=== PATIENT | male | born 1985 | race Caucasian/White ===

== ENCOUNTER 2018-05-23 18:00 | Observation (INO) ==
[2018-05-23 18:33] LABS: Basophils # 0.1 K/mm3 (0-0.2); Basophils % 0.4 % (0.1-2.0); Eosinophils # 0.3 K/mm3 (0.0-0.4); Eosinophils % 2.7 % (0.1-12.0); Hematocrit 48.3 % (42.0-52.0); Lymphocytes # 3.9 K/mm3 (0.7-4.5); Lymphocytes % 33.3 K/mm3 (10-50); Mean Corpuscular HGB Conc 33.1 g/dL (31.8-35.4); Mean Corpuscular Hemoglobin 32.6 pg (27.0-31.2); Mean Corpuscular Volume 98.4 fl (80-94); Mean Platelet Volume 6.3 fl (7.4-10.4); Monocytes # 0.4 K/mm3 (0.1-1.0); Monocytes % 3.1 % (1.7-9.3); Neutrophils % 60.4 % (37.0-80.0); Platelet Count 431 K/mm3 (142-424); Red Blood Count 4.91 M/mm3 (4.60-6.20); Red Cell Distribution Width 13.8 % (11.5-17.5); White Blood Count 11.6 K/mm3 (4.8-10.8)
[2018-05-23 18:41] LABS: Calcium 8.8 mg/dL (8.5-10.1)
--- NOTE | 2018-05-23 19:10 | Emergency Department Note ---
ED Disposition Clinical Impression: Upper GI bleed, Alcoholism /alcohol abuse Disposition: Still a Patient Condition on Discharge: Good Referrals: Provider,Referral, [Primary Care Provider] - - Critical Care Critical Care Time: No Attestation: On 05/23/18, the high probability of a clinically significant, sudden or life threatening deterioration of the following system(s) required my full and direct attention, intervention and personal management. The time I documented below is in addition to time spent performing reported procedures but includes the following listed in this critical care notation. Medical Decision Making - Rudy Inquiry Pt receiving controlled substance: No Vital Signs: 05/23/18 18:05 Temperature 98.4 F Temperature Source Oral Pulse Rate [Right Brachial] 102 H Respiratory Rate 20 Blood Pressure [Right Arm] 128/79 Blood Pressure Mean [Right Arm] 95 Blood Pressure Source [Right Arm] Automatic Cuff Blood Pressure Position [Right Arm] Sitting 02 Sat by Pulse Oximetry 98 Oxygen Delivery Method Room Air - Lab Data Lab Results 05/23/18 18:20: WBC 11.6 H, RBC 4.91, Hgb 16.0, Hct 48.3, MCV 98.4 H, MCH 32.6 H , MCHC 33.1, RDW 13.8, Plt Count 431 H, MPV 6.3 L, Neut % (Auto) 60.4, Lymph % (Auto) 33.3, [place] % (Auto) 3.1, Eos % (Auto) 2.7, Baso % (Auto) 0.4, Neut # (Auto) 7.0, Lymph # (Auto) 3.9, [place] # (Auto) 0.4, Eos # (Auto) 0.3, Baso # (Auto) 0.1 05/23/18 18:20: Sodium 144, Potassium 4.0, Chloride 106, Carbon Dioxide 30, Anion Gap 12.0, BUN 6 L, Creatinine 0.89, Estimated Creat Clear 135, Estimated GFR 100, Est GFR ( Amer) 121, Glucose 93, Calcium 8.8 05/23/18 18:23: PT 9.3 L, INR 0.90 05/23/18 18:23: Lipase 97 05/23/18 18:23: Magnesium 2.1 05/23/18 18:23: Plasma/Serum Alcohol 148 H 05/23/18 18:23: Total Bilirubin 0.3, Direct Bilirubin 0.1, Indirect Bilirubin 0.2, AST 19, ALT 30, Alkaline Phosphatase 102, Total Protein 7.8, Albumin 4.0 Result diagrams: 05/23/18 18:20 05/23/18 18:20 Orders (Tests/Meds): ED MEDICATIONS Generic Name Dose Route Start Last Admin Trade Name Freq PRN Reason Stop Dose Admin Pantoprazole Sodium 80 mg/ 100 mls @ 10 mls/hr 05/23/18 19:45 05/23/18 20:04 Sodium Chloride IV 05/26/18 19:44 10 mls/hr .Q10H [place] Administration Multivitamins 10 ml/ Thiamine 1,015 mls @ 150 mls/hr 05/23/18 19:45 05/23/18 20:04 HCl 100 mg/ Magnesium Sulfate IV 05/24/18 02:30 150 mls/hr 2 gm/ Lactated Ringer's .[id number] [place] Administration Discontinued Medications Generic Name Dose Route Start Last Admin Trade Name Freq PRN Reason Stop Dose Admin Folic Acid 1 mg 05/23/18 19:39 05/23/18 20:04 Folic Acid 1mg Tablet PO 05/23/18 19:40 1 mg ONCE ONE Administration Sodium Chloride 1,000 mls @ 999 mls/hr 05/23/18 18:15 05/23/18 18:31 Sod Chlor 0.9% 1000ml Bag IV 05/23/18 19:15 999 mls/hr .Q1H1M [place] Administration Pantoprazole Sodium 40 mg 05/23/18 18:26 05/23/18 18:31 Protonix 40mg Vial IV 05/23/18 18:27 40 mg ONCE ONE Administration Sodium Chloride 8 ml 05/23/18 18:26 05/23/18 18:31 Saline Flush 10ml Syringe IV 05/23/18 18:27 8 ml ONCE ONE Administration ORDERS Category Date Time Status CT abdomen pelvis wo con Stat Cat Scan 05/23/18 18:26 Taken Drug Screen,Urine Stat Lab 05/23/18 19:19 Ordered - CT Data CT Scan: Abdomen, Pelvis Time Received: 19:[address] Reviewed: Yes: I have viewed the radiologist's interpretation Findings Narrative: CT scan interpreted by [facility] radiologist. Faxed report received and reviewed: No acute intra-abdominal abnormality detected. - Physician Consults Physician Consulted: Enrike Time: 19:48 Comment/Response: Agrees to admit the patient to the hospital. We discussed the patient's clinical information, including history, exam, laboratory and radiology results and ED course. Per hospital procedure, I will write temporary bridge inpatient orders on the patient. Specific orders requested by the admitting physician: Continue Protonix drip. Consult surgery for endoscopy. Additional Consult: Clint Time: 19:53 Reason -: Surgical Eval/Care Comment/Response: Agreeable with consult for endoscopy Medical Decision Narrative: Patient refuses rectal exam for occult blood. Advised that if he has a bowel movement in the hospital will need to be tested. General Adult HPI - General Chief complaint: GI Bleed Stated complaint: Vomiting blood, back pain Time Seen by Provider: 05/23/18 19:09 Mode of Arrival: Family Vehicle Limitations: No Limitations Description of Symptoms (Recalled from ER Triage Doc. by RN): C/O VOMITING BLOOD X 2 AFTER LUNCH (BRIGHT RED BLOOD) MORE THAN USUAL PER PATIENT. STATES HE IS AN ALCOHOLIC. ALSO C/O UPPER BACK PAIN - History of Present Illness HPI narrative: Patient states "I am vomiting more blood than usual". He has been an alcoholic for many years. States that he drinks 24 beers or 1/5 of whiskey a day. States that he has vomited up blood off and on for years. Today he vomited up 2 cups or more of blood, which is 2-3 times as much as he has in the past. Also complains of left upper quadrant and left flank pain. Denies any melena or hematochezia. No fever. States that he drank 1/5 of whiskey today. Denies drug use. Hospitalized a couple of other times for hematemesis. His mother does not think he has ever had an upper endoscopy, but at one point, possibly in college, he was told that he had a bleeding ulcer. She does not know how that was diagnosed. - Related Data Home Medications Medication Instructions Recorded Confirmed No Known Home Medications 05/23/18 05/23/18 Allergies Allergy/AdvReac Type Severity Reaction Status Date / Time No Known Allergies Allergy Verified 05/23/18 18:12 [facility] History I have reviewed the patient's past medical history: Yes Medical History: Denies:: Cancer, Diabetes Mellitus Type 1, Diabetes Mellitus Type 2, MRSA Amputation: No - Social History Smoking Status: Current every day smoker Tobacco Type: cigarettes Alcohol Intake: current Alcohol Intake Frequency:: 3 or more drinks per day - Psychiatric History Expresses thoughts of harming self/others: None Suicide Plan Description: No Plan ROS Obtained: Yes All systems reviewed & no additional complaints - Constitutional Constitutional: Denies fever(s) - Cardiovascular Cardiovascular: Denies chest pain - Respiratory Respiratory: No dyspnea - Gastrointestinal Gastrointestingal: Reports: abdominal pain, vomiting blood. Denies: bright red blood in stools, black, tarry stools Physical Exam - General General appearance: alert, in no apparent distress Comment: Speech clear. - Head Head exam: atraumatic, normocephalic, normal inspection - Eye Eye exam: Present: PERRL, EOMI, conjunctival redness - ENT ENT exam: Present: normal exam, normal oropharynx, mucous membranes moist, TM's normal bilaterally, normal external ear exam - Neck Neck exam: Present: normal inspection, full ROM, trachea midline. Absent: me ningismus, lymphadenopathy - Chest Chest inspection: Present: normal inspection, symmetric chest wall rise. Absent: tenderness - Respiratory Respiratory exam: Present: normal lung sounds bilaterally. Absent: respiratory distress - Cardiovascular Cardiovascular exam: Present: regular rate, normal rhythm. Absent: JVD - Abdominal Exam Abdominal exam: Present: soft, tenderness, normal bowel sounds. Absent: distention, guarding Abdominal tenderness: Present: epigastrium - Extremities Exam Extremities exam: Present: normal inspection, full ROM, normal capillary refill. Absent: calf tenderness - Back Exam Back exam: Present: normal inspection. Absent: tenderness - Neurological Exam Neurological exam: Present: alert, oriented X3 - Psychiatric Psychiatric exam: Present: normal affect, normal mood - Skin Skin exam: Present: warm, dry, intact, normal color
[2018-05-23 19:27] LABS: INR 0.9 (0.9-1.1); Prothrombin Time 9.3 seconds (9.4-11.8)
[2018-05-23 20:08] LABS: Bilirubin,Direct 0.1 mg/dL (0.0-0.2); Bilirubin,Indirect 0.2 mg/dL (0.0-0.9); Bilirubin,Total 0.3 mg/dL (0.2-1.0); Total Protein,Serum 7.8 gm/dL (6.4-8.2)
[2018-05-24 06:17] LABS: Basophils % 0.4 % (0.1-2.0); Eosinophils # 0.2 K/mm3 (0.0-0.4); Eosinophils % 2.2 % (0.1-12.0); Lymphocytes % 34.8 K/mm3 (10-50); Mean Corpuscular HGB Conc 32.6 g/dL (31.8-35.4); Mean Corpuscular Hemoglobin 32.4 pg (27.0-31.2); Mean Corpuscular Volume 99.2 fl (80-94); Mean Platelet Volume 6.5 fl (7.4-10.4); Monocytes # 0.4 K/mm3 (0.1-1.0); Monocytes % 4.3 % (1.7-9.3); Neutrophils # 5.1 K/mm3 (1.8-7.8); Neutrophils % 58.3 % (37.0-80.0); Platelet Count 382 K/mm3 (142-424); Red Blood Count 4.39 M/mm3 (4.60-6.20); Red Cell Distribution Width 13.6 % (11.5-17.5); White Blood Count 8.7 K/mm3 (4.8-10.8)
--- NOTE | 2018-05-24 06:22 | Consult Report ---
*Admission Date: 05/23/18 *Chief complaint: Hematemesis *History of present illness: This is a 32-year-old gentleman seen in consultation from Dr. Calvert for possible esophagogastroduodenoscopy. He presented to the emergency department overnight with hematemesis. Please see a forwarded copy (below) of his history of present illness from his emergency room visit: Patient states "I am vomiting more blood than usual". He has been an alcoholic for many years. States that he drinks 24 beers or 1/5 of whiskey a day. States that he has vomited up blood off and on for years. Today he vomited up 2 cups or more of blood, which is 2-3 times as much as he has in the past. Also complains of left upper quadrant and left flank pain. Denies any melena or hematochezia. No fever. States that he drank 1/5 of whiskey today. Denies drug use. Hospitalized a couple of other times for hematemesis. His mother does not think he has ever had an upper endoscopy, but at one point, possibly in college, he was told that he had a bleeding ulcer. She does not know how that was diagnosed. Review of Systems - Constitutional Denies body ache(s) - Eyes Denies change in vision - ENT Denies abnormal hearing - *Cardiovascular Denies chest pain - *Respiratory Denies cough - *Gastrointestinal Reports vomiting blood, Denies bright, red blood in stools - *Genitourinary Denies blood in semen - *Musculoskeletal Denies joint pain - *Neurologic Denies abnormal movements - Psychiatric Denies anxiety - Endocrine Denies cold intolerance - Hematologic/Lymphatic Denies easy bleeding - Allergic/Immunologic Denies throat swelling [facility] History Medical History: Denies:: Cancer, Diabetes Mellitus Type 1, Diabetes Mellitus Type 2, MRSA Amputation: No - *Social History Educational Level: Completed High School Smoking Status: Current every day smoker Tobacco Type: cigarettes # Packs/Day (cigarettes): 1 Alcohol Intake: current Alcohol Intake Frequency:: 3 or more drinks per day Occupational Status: employed Housing: house Household Members: significant other - Psychiatric History Expresses thoughts of harming self/others: None Suicide Plan Description: No Plan *Family Hx:: No significant family history Meds Home Medications Medication Instructions Recorded Confirmed Type No Known Home Medications 05/23/18 05/23/18 History Allergies Allergy/AdvReac Type Severity Reaction Status Date / Time No Known Allergies Allergy Verified 05/23/18 18:12 Exam Vital signs and Labs for Last 24 Hours: Temp Pulse Resp BP Pulse Ox 97.8 F 86 16 156/85 94 L 05/24/18 04:00 05/24/18 04:00 05/24/18 04:00 05/24/18 04:00 05/24/18 04:00 Laboratory Results - last 24 hr 05/23/18 18:20: WBC 11.6 H, RBC 4.91, Hgb 16.0, Hct 48.3, MCV 98.4 H, MCH 32.6 H , MCHC 33.1, RDW 13.8, Plt Count 431 H, MPV 6.3 L, Neut % (Auto) 60.4, Lymph % (Auto) 33.3, [place] % (Auto) 3.1, Eos % (Auto) 2.7, Baso % (Auto) 0.4, Neut # (Auto) 7.0, Lymph # (Auto) 3.9, [place] # (Auto) 0.4, Eos # (Auto) 0.3, Baso # (Auto) 0.1 05/23/18 18:20: Sodium 144, Potassium 4.0, Chloride 106, Carbon Dioxide 30, Anion Gap 12.0, BUN 6 L, Creatinine 0.89, Estimated Creat Clear 135, Estimated GFR 100, Est GFR ( Amer) 121, Glucose 93, Calcium 8.8 05/23/18 18:23: PT 9.3 L, INR 0.90 05/23/18 18:23: Lipase 97 05/23/18 18:23: Magnesium 2.1 05/23/18 18:23: Plasma/Serum Alcohol 148 H 05/23/18 18:23: Total Bilirubin 0.3, Direct Bilirubin 0.1, Indirect Bilirubin 0.2, AST 19, ALT 30, Alkaline Phosphatase 102, Total Protein 7.8, Albumin 4.0 05/23/18 18:28: APTT 30.0 05/23/18 18:28: Phosphorus 3.7 I & O for Last 24 hours: Intake & Output 05/21/18 05/22/18 05/23/18 05/24/18 11:59 11:59 11:59 11:59 Intake Total 2073 Balance 2073 Weight 181 lb - Constitutional no acute distress - *Routine HEENT Exam Head: Present: normocephalic, atraumatic - *Routine Neck Exam Present: full ROM - *Routine Respiratory Exam Absent: respiratory distress - *Routine Cardiovascular Exam Present: RRR - *Routine Abdominal Exam Present: soft - *Routine Extremities Exam Present: full ROM. Absent: cyanosis, clubbing, edema - *Routine Neurological Exam Present: alert, oriented X3 - Routine Psychiatric Exam Present: normal affect Results - Labs 05/23/18 18:20 05/23/18 18:20 Laboratory Results - last 24 hr 05/23/18 18:20: WBC 11.6 H, RBC 4.91, Hgb 16.0, Hct 48.3, MCV 98.4 H, MCH 32.6 H , MCHC 33.1, RDW 13.8, Plt Count 431 H, MPV 6.3 L, Neut % (Auto) 60.4, Lymph % (Auto) 33.3, [place] % (Auto) 3.1, Eos % (Auto) 2.7, Baso % (Auto) 0.4, Neut # (Auto) 7.0, Lymph # (Auto) 3.9, [place] # (Auto) 0.4, Eos # (Auto) 0.3, Baso # (Auto) 0.1 05/23/18 18:20: Sodium 144, Potassium 4.0, Chloride 106, Carbon Dioxide 30, Anion Gap 12.0, BUN 6 L, Creatinine 0.89, Estimated Creat Clear 135, Estimated GFR 100, Est GFR ( Amer) 121, Glucose 93, Calcium 8.8 05/23/18 18:23: PT 9.3 L, INR 0.90 05/23/18 18:23: Lipase 97 05/23/18 18:23: Magnesium 2.1 05/23/18 18:23: Plasma/Serum Alcohol 148 H 05/23/18 18:23: Total Bilirubin 0.3, Direct Bilirubin 0.1, Indirect Bilirubin 0.2, AST 19, ALT 30, Alkaline Phosphatase 102, Total Protein 7.8, Albumin 4.0 05/23/18 18:28: APTT 30.0 05/23/18 18:28: Phosphorus 3.7 Assessment and Plan (1) Upper GI bleed Current visit: Yes Status: Acute Category: Medical Code(s): K92.2 - Gastrointestinal hemorrhage, unspecified Esophagogastroduodenoscopy-I have discussed the risks and benefits and he agrees to proceed Continue proton pump inhibition (2) Alcoholism /alcohol abuse Current visit: Yes Status: Acute Category: Medical Code(s): F10.20 - Alcohol dependence, uncomplicated Treatment as per primary care provider. He will require the anesthesia service for sedation.
[2018-05-24 06:35] LABS: Hematocrit 43.7 % (42.0-52.0); Hemoglobin 14.4 g/dL (14.1-18.0)
--- NOTE | 2018-05-24 07:25 | Procedure Note ---
- Procedure: Date: 05/24/18 Procedure Performed:: Esophagogastroduodenoscopy with biopsy Indications:: This is a 32-year-old gentleman who presented to the emergency department with hematemesis. Performing Provider:: Noel Jaramillo MD Referring Provider:: Dr. Calvert Sedation:: Monitored anesthesia care Procedure:: After informed consent was obtained the patient was taken to the endoscopy suite. Sedation ensued after the patient was transferred to the left lateral decubitus position. Pulse, blood pressure, and oxygen saturation were monitored throughout the procedure. The endoscope was advanced beyond the duodenal bulb. Retroflexion within the gastric lumen was accomplished. Please see findings and specimens below for detail. The gastroscope was carefully removed and the patient was transferred to recovery. Findings:: Gastroesophageal junction at 40 cm Patchy distal esophagitis Moderate sliding hiatal hernia Large amount of food particles retained within gastric lumen Patchy gastritis No active bleeding No sign of recent hemorrhage (no old blood within gastric lumen or small bowel) No significant varices No ulcerations Specimens:: Antral biopsy Recommendations:: Continue proton pump inhibitor Follow-up pending pathology Likely repeat EGD in near future for improved visualization (limited visualization secondary to large amount of retained food particles) Complications:: No immediate Estimated blood obtained (mL): 1
--- NOTE | 2018-05-24 07:29 | Progress Note ---
[facility] Anesthesia Checklist - Patient Identification Patient Identification: Arm Band, Verbal (Name & ) - Structural Data Admitted From: Inpatient Planned Operative Procedure/s: egd Consent for Planned Operative Procedure(s) Verified: Yes Verified Documents: Surgical Consent, History and Physical - NPO Status Verified Time NPO: 00:00 - Additional verifications Patient : No Anesthesia Reactions: No Hx Blood Transfusions: No Blood Transfusion Reaction: No Cephalosporin Allergy: No Previous Colonoscopy: No - Cardiovascular Assessment Heart Sounds: S1 & S2 Pulse Strength: Baseline Pulse Rhythm: Regular Peripheral Edema: No - Airway Assessment C-Spine Mobility Assessed: Yes TMJ Mobility Assessed: Yes Dentition: Good Dentition - Neurological Assessment Level of Consciousness: Awake, Alert, Appropriate Hx Seizures: No Numbness or tingling in extremities: No - Anesthesia Plan Anesthesia Risk discussed: Yes Anesthesia Plan: Verified ASA Class: II Anesthesia Type: [facility] History I have reviewed the patient's past medical history: Yes Medical History: Denies:: Cancer, Diabetes Mellitus Type 1, Diabetes Mellitus Type 2, MRSA Other Surgeries: Yes: Other (ing hernia) Amputation: No - *Social History Educational Level: Completed High School Smoking Status: Current every day smoker Tobacco Type: cigarettes # Packs/Day (cigarettes): 1 Alcohol Intake: current Alcohol Intake Frequency:: 3 or more drinks per day Occupational Status: employed Housing: house Household Members: significant other - Psychiatric History Expresses thoughts of harming self/others: None Suicide Plan Description: No Plan *Family Hx:: No significant family history
--- NOTE | 2018-05-24 07:53 | Pharmacy Consult Notes ---
[facility] Pharmacy VTE Monitoring - Patient Demographics Admission date: 05/23/18 Report Date: 05/24/18 Time: 07:53 Allergies/Adverse Reactions: Patient Allergies No Known Allergies Allergy (Verified 05/23/18 18:12) Height: 1.73 m Weight: 82.1 kg Patient Problems: Current Active Problems Upper GI bleed (Acute) Alcoholism /alcohol abuse (Acute) - VTE Risk Labs: VTE Related Lab Results Hgb 14.4 g/dL (14.1-18.0) 05/24/18 05:15 Hct 43.7 % (42.0-52.0) 05/24/18 05:15 Plt Count 382 K/mm3 (142-424) 05/24/18 05:15 PT 9.3 seconds (9.4-11.8) L 05/23/18 18:23 INR 0.90 (0.9-1.1) 05/23/18 18:23 APTT 30.0 seconds (23.6-34.0) 05/23/18 18:28 BUN 6 mg/dL (7-18) L 05/23/18 18:20 Creatinine 0.89 mg/dL (0.70-1.30) 05/23/18 18:20 Estimated Creat Clear 135 mL/min (0-300) 05/23/18 18:20 Was VTE Risk Assessment Performed: Yes VTE Score: 0 VTE Risk Level: Very Low Risk - Prophylaxis VTE Prophylaxis Ordered?: Yes Types of VTE Prophylaxis: TEDS Knee High Location of Applied Device: Bilateral Lower Extremeties - VTE Diagnosis Confirmed Treatment or plan recommended: Continue Current Treatment
--- NOTE | 2018-05-25 08:26 | Discharge Summary ---
General - General Admission date:: 05/23/18 Discharge date: 05/24/18 HPI HPI: Mr. Gonsalez is a 32yo male who has been alcoholic for many years. He states he drinks approximately 24 beers every night and on the nights he is not working the next day, he drinks 1/5 of whiskey as well. He states he has vomited small amounts of blood on and off for years. He presented to the emergency room after vomiting a few cups or more of blood. He does complain of some left upper quadrant and left flank pain. He denies any melena or hematochezia. He states he has never had an EGD, but was told in the past he had a bleeding ulcer. He was admitted and surgery was consulted for an EGD. Hospital Course Hospital Course: The patient was seen by Dr. Jaramillo who performed an EGD. It showed gastritis and esophagitis, but no active bleed. His H&H was stable. He was able to be discharged home and will need to f/u with surgery in 1 week. Objective Vital signs: Temp Pulse Resp BP Pulse Ox 98 F 77 20 123/79 96 05/24/18 07:56 05/24/18 07:56 05/24/18 07:56 05/24/18 07:56 05/24/18 07:56 Narrative: - Constitutional no acute distress - *Routine HEENT Exam Head: Present: normocephalic, atraumatic Eye: Present: EOMI, PERRL ENT: Present: mucous membranes moist - *Routine Neck Exam Present: supple, full ROM - *Routine Respiratory Exam Present: CTA bilaterally - *Routine Cardiovascular Exam Present: RRR - *Routine Abdominal Exam Present: soft, normoactive bowel sounds, tenderness (LUQ and LMQ) - *Routine Extremities Exam Absent: edema - *Routine Skin Exam Present: intact - *Routine Neurological Exam Present: alert, oriented X3 Results Labs on day of discharge: Labs from last 24 hours 05/24/18 05/23/18 05/23/18 05:15 18:28 18:28 WBC 8.7 RBC 4.39 L Hgb 14.4 Hct 43.7 MCV 99.2 H MCH 32.4 H MCHC 32.6 RDW 13.6 Plt Count 382 MPV 6.5 L Neut % (Auto) 58.3 Lymph % (Auto) 34.8 [place] % (Auto) 4.3 Eos % (Auto) 2.2 Baso % (Auto) 0.4 Neut # (Auto) 5.1 Lymph # (Auto) 3.0 [place] # (Auto) 0.4 Eos # (Auto) 0.2 Baso # (Auto) 0.0 PT INR APTT 30.0 Sodium Potassium Chloride Carbon Dioxide Anion Gap BUN Creatinine Estimated Creat Clear Estimated GFR Est GFR ( Amer) Glucose Calcium Phosphorus 3.7 Magnesium Total Bilirubin Direct Bilirubin Indirect Bilirubin AST ALT Alkaline Phosphatase Total Protein Albumin Lipase Plasma/Serum Alcohol 05/23/18 05/23/18 05/23/18 18:23 18:23 18:23 WBC RBC Hgb Hct MCV MCH MCHC RDW Plt Count MPV Neut % (Auto) Lymph % (Auto) [place] % (Auto) Eos % (Auto) Baso % (Auto) Neut # (Auto) Lymph # (Auto) [place] # (Auto) Eos # (Auto) Baso # (Auto) PT INR APTT Sodium Potassium Chloride Carbon Dioxide Anion Gap BUN Creatinine Estimated Creat Clear Estimated GFR Est GFR ( Amer) Glucose Calcium Phosphorus Magnesium 2.1 Total Bilirubin 0.3 Direct Bilirubin 0.1 Indirect Bilirubin 0.2 AST 19 ALT 30 Alkaline Phosphatase 102 Total Protein 7.8 Albumin 4.0 Lipase Plasma/Serum Alcohol 148 H 05/23/18 05/23/18 05/23/18 18:23 18:23 18:20 WBC RBC Hgb Hct MCV MCH MCHC RDW Plt Count MPV Neut % (Auto) Lymph % (Auto) [place] % (Auto) Eos % (Auto) Baso % (Auto) Neut # (Auto) Lymph # (Auto) [place] # (Auto) Eos # (Auto) Baso # (Auto) PT 9.3 L INR 0.90 APTT Sodium 144 Potassium 4.0 Chloride 106 Carbon Dioxide 30 Anion Gap 12.0 BUN 6 L Creatinine 0.89 Estimated Creat Clear 135 Estimated GFR 100 Est GFR ( Amer) 121 Glucose 93 Calcium 8.8 Phosphorus Magnesium Total Bilirubin Direct Bilirubin Indirect Bilirubin AST ALT Alkaline Phosphatase Total Protein Albumin Lipase 97 Plasma/Serum Alcohol 05/23/18 18:20 WBC 11.6 H RBC 4.91 Hgb 16.0 Hct 48.3 MCV 98.4 H MCH 32.6 H MCHC 33.1 RDW 13.8 Plt Count 431 H MPV 6.3 L Neut % (Auto) 60.4 Lymph % (Auto) 33.3 [place] % (Auto) 3.1 Eos % (Auto) 2.7 Baso % (Auto) 0.4 Neut # (Auto) 7.0 Lymph # (Auto) 3.9 [place] # (Auto) 0.4 Eos # (Auto) 0.3 Baso # (Auto) 0.1 PT INR APTT Sodium Potassium Chloride Carbon Dioxide Anion Gap BUN Creatinine Estimated Creat Clear Estimated GFR Est GFR ( Amer) Glucose Calcium Phosphorus Magnesium Total Bilirubin Direct Bilirubin Indirect Bilirubin AST ALT Alkaline Phosphatase Total Protein Albumin Lipase Plasma/Serum Alcohol DS: Diagnosis - Discharge Diagnosis (1) Upper GI bleed Status: Acute (2) Esophagitis Status: Acute (3) Gastritis Status: Acute (4) Alcoholism /alcohol abuse Status: Chronic Discharge Plan - Patient Discharge Instructions ACTIVITY: Continue current activity DIET: continue same diet Additional Instructions: Avoid alcohol Patient Instructions: Gastrointestinal Bleeding - Follow up Plan Follow up with: Noel Jaramillo MD [Staff Physician] - 1 week Disposition: Home, Self-Care Prescriptions/Medication Reconciliation: New Folic Acid [Folic Acid 1mg tablet] 1 mg PO DAILY #30 tablet Thiamine HCl [Vitamin B-1 100mg tablet] 100 mg PO DAILY #30 tablet
--- NOTE | 2018-05-25 08:31 | History & Physical Report ---
*Admission Date: 05/23/18 *Chief complaint: blood in vomit *History of present illness: Mr. Gonsalez is a 32yo male who has been alcoholic for many years. He states he drinks approximately 24 beers every night and on the nights he is not working the next day, he drinks 1/5 of whiskey as well. He states he has vomited small amounts of blood on and off for years. He presented to the emergency room after vomiting a few cups or more of blood. He does complain of some left upper quadrant and left flank pain. He denies any melena or hematochezia. He states he has never had an EGD, but was told in the past he had a bleeding ulcer. He was admitted and surgery was consulted for an EGD. [facility] History Medical History: Reports:: Gastrointestinal Bleed Denies:: Cancer, Diabetes Mellitus Type 1, Diabetes Mellitus Type 2, MRSA, Seizures Other Medical History: Denies: Blood Transfusion Reaction Other Surgeries: Yes: Hernia Repair, Other (ing hernia) Amputation: No - *Social History Educational Level: Completed High School Smoking Status: Current every day smoker Tobacco Type: cigarettes # Packs/Day (cigarettes): 1 Alcohol Intake: current Alcohol Intake Frequency:: 3 or more drinks per day Occupational Status: employed Housing: house Household Members: significant other - Psychiatric History Expresses thoughts of harming self/others: None Suicide Plan Description: No Plan *Family Hx:: Hypertension Review of Systems - Constitutional Reports weakness, Denies chills, Denies fatigue - Eyes Denies blurry vision, Denies double vision - ENT Denies nasal congestion, Denies sore throat - *Cardiovascular Denies chest pain, Denies irregular heart rhythm - *Respiratory Denies cough, Denies shortness of breath - *Gastrointestinal Reports abdominal pain, Reports vomiting blood, Reports nausea, Reports vomiting, Denies black, tarry stools - *Genitourinary Denies difficulty urinating, Denies painful urination - *Musculoskeletal Denies joint pain - *Neurologic Reports weakness, Denies abnormal hearing, Denies abnormal movements, Denies headache(s), Denies dizziness Meds Home Medications Medication Instructions Recorded Confirmed Type No Known Home Medications 05/23/18 05/23/18 History Allergies Allergy/AdvReac Type Severity Reaction Status Date / Time No Known Allergies Allergy Verified 05/23/18 18:12 Exam Vital signs and Labs for Last 24 Hours: Temp Pulse Resp BP Pulse Ox 98 F 77 20 123/79 96 05/24/18 07:56 05/24/18 07:56 05/24/18 07:56 05/24/18 07:56 05/24/18 07:56 Laboratory Results - last 24 hr 05/23/18 18:20: WBC 11.6 H, RBC 4.91, Hgb 16.0, Hct 48.3, MCV 98.4 H, MCH 32.6 H , MCHC 33.1, RDW 13.8, Plt Count 431 H, MPV 6.3 L, Neut % (Auto) 60.4, Lymph % (Auto) 33.3, Peach % (Auto) 3.1, Eos % (Auto) 2.7, Baso % (Auto) 0.4, Neut # (Auto) 7.0, Lymph # (Auto) 3.9, Peach # (Auto) 0.4, Eos # (Auto) 0.3, Baso # (Auto) 0.1 05/23/18 18:20: Sodium 144, Potassium 4.0, Chloride 106, Carbon Dioxide 30, Anion Gap 12.0, BUN 6 L, Creatinine 0.89, Estimated Creat Clear 135, Estimated GFR 100, Est GFR ( Amer) 121, Glucose 93, Calcium 8.8 05/23/18 18:23: PT 9.3 L, INR 0.90 05/23/18 18:23: Lipase 97 05/23/18 18:23: Magnesium 2.1 05/23/18 18:23: Plasma/Serum Alcohol 148 H 05/23/18 18:23: Total Bilirubin 0.3, Direct Bilirubin 0.1, Indirect Bilirubin 0.2, AST 19, ALT 30, Alkaline Phosphatase 102, Total Protein 7.8, Albumin 4.0 05/23/18 18:28: APTT 30.0 05/23/18 18:28: Phosphorus 3.7 05/24/18 05:15: WBC 8.7, RBC 4.39 L, Hgb 14.4, Hct 43.7, MCV 99.2 H, MCH 32.4 H, MCHC 32.6, RDW 13.6, Plt Count 382, MPV 6.5 L, Neut % (Auto) 58.3, Lymph % (Auto) 34.8, Peach % (Auto) 4.3, Eos % (Auto) 2.2, Baso % (Auto) 0.4, Neut # (Auto) 5.1, Lymph # (Auto) 3.0, Peach # (Auto) 0.4, Eos # (Auto) 0.2, Baso # (Auto) 0.0 I & O for Last 24 hours: Intake & Output 05/21/18 05/22/18 05/23/18 05/24/18 11:59 11:59 11:59 11:59 Intake Total 2516 / 2516 Balance 2516 Weight 181 lb - Constitutional no acute distress - *Routine HEENT Exam Head: Present: normocephalic, atraumatic Eye: Present: EOMI, PERRL ENT: Present: mucous membranes moist - *Routine Neck Exam Present: supple, full ROM - *Routine Respiratory Exam Present: CTA bilaterally - *Routine Cardiovascular Exam Present: RRR - *Routine Abdominal Exam Present: soft, normoactive bowel sounds, tenderness (LUQ and LMQ) - *Routine Extremities Exam Absent: edema - *Routine Skin Exam Present: intact - *Routine Neurological Exam Present: alert, oriented X3 H&P: Result - Impressions Abd CT - nothing acute EGD Findings: Gastroesophageal junction at 40 cm Patchy distal esophagitis Moderate sliding hiatal hernia Large amount of food particles retained within gastric lumen Patchy gastritis No active bleeding No sign of recent hemorrhage (no old blood within gastric lumen or small bowel) No significant varices No ulcerations Recommendations:: Continue proton pump inhibitor Follow-up pending pathology Likely repeat EGD in near future for improved visualization (limited visualization secondary to large amount of retained food particles) Assessment and Plan (1) Upper GI bleed Current visit: Yes Status: Acute Category: Medical Code(s): K92.2 - Gastrointestinal hemorrhage, unspecified (2) Esophagitis Current visit: Yes Status: Acute Category: Medical Code(s): K20.9 - Esophagitis, unspecified (3) Gastritis Current visit: Yes Status: Acute Category: Medical Code(s): K29.70 - Gastritis, unspecified, without bleeding (4) Alcoholism /alcohol abuse Current visit: Yes Status: Chronic Category: Medical Code(s): F10.20 - Alcohol dependence, uncomplicated - Assessment and plan all Dx Assessment and Plan for all problems:: Patient has already had an EGD this morning and there was no active bleed found. He did have gastritis and esophagitis. Dr. Jaramillo recommends a PPI and a repeat EGD in the near future. His H&H is stable. Will discuss further care with Dr. king but can possibly be discharged home today.
== END 2018-05-24 10:27 | disposition home or self-care (01) ==
LOC: 2ND 18:00 → ER 18:00 → 2ND 20:51
PROVIDERS: ADMIT Family Medicine; ATTEND Family Medicine
CPT/HCPCS: 36415; 74176; 80048; 80076; 83690; 83735; 84100; 85025; 85610; 85730; 96365; 96367; 96375; 99284; G0378

== ENCOUNTER → 2019-04-02 08:16 | Outpatient (POV) | payer SELFPAY | PROVIDERS: Visit Provider Dermatology | DX: Z00.00 Encounter for general adult medical examination without abnormal findings (principal) ==

== ENCOUNTER 2020-09-07 06:35 | Day surgery (SDC) | payer OTHER, SELFPAY ==
[2020-09-07] VITALS (8 sets, daily range): BP systolic 97–156; BP diastolic 48–96; PULSE 60–88; RESP 16–18; TEMP 36.3–37.1; O2SAT 88–99; BMI 28.1
--- NOTE | 2020-09-07 06:56 | HMH.EDWNDL ---
ED Disposition Clinical Impression: Laceration of thumb Qualifiers: Encounter type: initial encounter Damage to nail status: with damage Foreign body presence: with foreign body Laterality: left Qualified Code(s): S61.122A - Laceration with foreign body of left thumb with damage to nail, initial encounter Extensor tendon laceration of finger with open wound Qualifiers: Encounter type: initial encounter Qualified Code(s): S56.429A - Laceration of extensor muscle, fascia and tendon of unspecified finger at forearm level, initial encounter Disposition: Home, Self-Care Condition on Discharge: Good Instructions: DI for Laceration Repair Additional Instructions: work restrictions as per ortho Referrals: PCP,No [Primary Care Provider] - Roldan Pillai MD [Staff Physician] - - Critical Care Critical Care Time: No Attestation: On 09/07/20, the high probability of a clinically significant, sudden or life threatening deterioration of the following system(s) required my full and direct attention, intervention and personal management. The time I documented below is in addition to time spent performing reported procedures but includes the following listed in this critical care notation. Medical Decision Making - Medical Records Medical records reviewed: Yes: I reviewed the patient's medical records. - Rudy Inquiry Pt receiving controlled substance: No Vital Signs: 09/07/20 06:45 09/07/20 07:01 09/07/20 07:30 Temperature 98.7 F Temperature Source Oral Pulse Rate [Right] 82 60 64 Respiratory Rate 16 Blood Pressure [Right Arm] 130/94 H 97/48 L 120/89 Blood Pressure Mean [Right Arm] 106 64 99 Blood Pressure Source [Right Arm] Automatic Cuff Automatic Cuff Automatic Cuff Blood Pressure Position [Right Arm] Sitting Sitting Sitting 02 Sat by Pulse Oximetry 98 95 98 Oxygen Delivery Method Room Air Room Air Room Air Orders (Tests/Meds): ED MEDICATIONS Generic Name Dose Route Start Last Admin Trade Name Freq PRN Reason Stop Dose Admin Sodium Chloride 1,000 mls @ 999 mls/hr 09/07/20 08:00 Sod Chlor 0.9% 1000ml Bag IV 09/07/20 09:00 .Q1H1M [place] Discontinued Medications Generic Name Dose Route Start Last Admin Trade Name Freq PRN Reason Stop Dose Admin Tetanus/Diphtheria Toxoids 0.5 ml 09/07/20 06:44 09/07/20 06:47 Tetanus-Diphth Toxoid, Adult 0.5ml Syr IM 09/07/20 06:45 0.5 ml .ONCE ONE Administration ORDERS Category Date Time Status XR hand LT min 3V Stat Exams 09/07/20 07:46 Ordered CMP [Comprehensive Metabolic Panel] Stat Lab 09/07/20 07:59 Received Complete Blood Count Auto Diff Stat Lab 09/07/20 07:59 Received Covid-19 IgG/IgM ([facility]) Stat Lab 09/07/20 07:59 Received - Physician Consults Physician Consulted: pillai Reason -: Pt condition, Orthopedic Eval/Care Medical Decision Narrative: has lt thumb laceration with ext tendon lac- will need ortho repair Wound/Laceration HPI - General Chief Complaint: Wound/Laceration Stated Complaint: Cut thumb Time Seen by Provider: 09/07/20 06:50 Mode of Arrival: Ambulatory Source of Information: Patient, Medical Record Limitations: No Limitations Description of Symptoms (Recalled from ER Triage Doc. by RN): Pt has lac to left thumb from Pexiglass, bleeding under control - History of Present Illness HPI narrative: laceration to dorsum of lt thumb at work this am on plexiglass- pt is rt handed Onset (ago): minute(s) Extremity Location: Left: hand Place: work Patient tetanus UTD: No Context: accidental Associated symptoms: none - Related Data Allergies Allergy/AdvReac Type Severity Reaction Status Date / Time No Known Allergies Allergy Verified 12/25/18 13:09 [facility] History - Hepatitis A Screen Drug use history?: No High risk sexual behaviors?: No History of sexually transmitted infection?: No Currently employed?: No Childcare worker?: No Do you have indoor plumbing?: Yes Do you have electr
--- NOTE | 2020-09-07 07:46 | XR_ITS ---
PROCEDURE: XR HAND LT MIN 3V CLINICAL INDICATION: hand injury COMPARISON: No exams were available for comparison FINDINGS: No fracture or dislocation. No lytic or blastic change. There is normal mineralization. The joint spaces are well-preserved. No significant degenerative/arthritic changes. No erosive changes evident. There is diffuse soft tissue swelling of the hand particularly the web space between the thumb and index finger. There are no foreign bodies seen. Other findings:None. IMPRESSION: Soft tissue swelling particularly base of thumb and web space between thumb and index finger Dictated by: Dr. Jerman Muse MD 09/07/2020 08:16 Dr. Jerman Muse MD in [place] 09/07/2020 08:16
--- NOTE | 2020-09-07 08:07 | PC.NURSE ---
Follow up appt set for Sep [address] Rivero.
[2020-09-07 08:13] LABS: Basophils # 0.1 K/mm3 (0-0.2); Basophils % 0.6 % (0.1-2.0); Eosinophils # 0.2 K/mm3 (0.0-0.4); Eosinophils % 1.8 % (0.1-12.0); Hematocrit 49.7 % (42.0-52.0); Hemoglobin 16.5 g/dL (14.1-18.0); Lymphocytes % 22.3 % (10-50); Mean Corpuscular HGB Conc 33.2 g/dL (31.8-35.4); Mean Corpuscular Hemoglobin 32.9 pg (27.0-31.2); Mean Corpuscular Volume 99.1 fl (80-94); Monocytes # 0.5 K/mm3 (0.1-1.0); Monocytes % 3.9 % (1.7-9.3); Neutrophils # 9.7 K/mm3 (1.8-7.8); Neutrophils % 71.4 % (37.0-80.0); Platelet Count 504 K/mm3 (142-424); Red Blood Count 5.01 M/mm3 (4.60-6.20); Red Cell Distribution Width 13.9 % (11.5-17.5); White Blood Count 13.5 K/mm3 (4.8-10.8)
[2020-09-07 08:18] LABS: Chloride 101 mmol/L (98-107); Potassium 3.9 mmoL/L (3.5-5.1); Sodium 138 mmol/L (136-145)
[2020-09-07 08:21] LABS: Alanine Aminotransferase 36 U/L (12-78); Albumin Level 4.6 g/dl (3.5-5.0); Albumin/Globulin Ratio 1.4 (1.1-1.8); Alkaline Phosphatase 88 U/L (38-126); Anion Gap 10.9 mEq/L (5-15); Aspartate Amino Transferase 32 U/L (17-59); Bilirubin,Total 0.5 mg/dl (0.2-1.3); Blood Urea Nitrogen 6 mg/dl (9-20); Carbon Dioxide 30 mmol/L (22.0-30.0); Creatinine Clearance Estimated 135 mL/min (50-200); Estimated Glomerular Filt Rate 97 ml/min (>60); GFR (African American) 118 ML/MIN (>60); Globulin 3.2 g/dL (1.3-3.2); Glucose 113 mg/dl (74-100); Total Protein,Serum 7.8 g/dl (6.3-8.2)
[2020-09-07 08:22] LABS: Calcium 9.5 mg/dl (8.4-10.2)
[2020-09-07 08:47] LABS: Coronavirus 19 IgG Antibody Negative (Negative); Coronavirus 19 IgM Antibody Negative (Negative)
--- NOTE | 2020-09-07 08:49 | PC.NURSE ---
dressing applied to lt thumb and hand
--- NOTE | 2020-09-07 09:15 | PC.NURSE ---
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
--- NOTE | 2020-09-07 12:32 | HMH.ORTHOCON ---
*Admission Date: 09/07/20 *Reason for consult:: Laceration, left thumb *History of present illness: Patient is a 34-year-old pyxur-upej-xpocnuln male who sustained a work-related lacerated injury this morning to his left thumb over the dorsal aspect of the proximal phalanx. The wound was irrigated and explored in the ER. The ER physician noted partial extensor tendon injury and referred for further orthopedic management. [facility] History I have reviewed the patient's past medical history: Yes Medical History: Reports:: Gastrointestinal Bleed Denies:: Cancer, Diabetes Mellitus Type 1, Diabetes Mellitus Type 2, MRSA, Seizures *Have you ever received a pneumonia vaccine?: No *Have you received a flu vaccine this season?: No Other Medical History: Denies: Blood Transfusion Reaction Other Surgeries: Yes: Hernia Repair, Other Amputation: No - *Social History Smoking Status: Current every day smoker Tobacco Type: cigarettes # Packs/Day (cigarettes): 1 Alcohol Intake: never Alcohol Intake Frequency:: a few times a week *Occupational Status:: employed Housing: house Household Members: significant other *Travel in the last 8 weeks: None Family Hx:: Hypertension Review of Systems - Review of Systems Review of systems:: pertinent systems reviewed and negative unless documented below - *Neurologic Denies localized weakness Meds Home Medications Medication Instructions Recorded Confirmed Type No Known Home Medications 10/20/20 10/20/20 History Allergies Allergy/AdvReac Type Severity Reaction Status Date / Time No Known Allergies Allergy Verified 10/20/20 08:59 Exam Vital signs and Labs for Last 24 Hours: Temp Pulse Resp BP Pulse Ox 98 F 78 16 131/72 98 09/07/20 09:17 09/07/20 09:17 09/07/20 09:17 09/07/20 09:17 09/07/20 07:30 Laboratory Results - last 24 hr 09/07/20 07:59: WBC 13.5 H, RBC 5.01, Hgb 16.5, Hct 49.7, MCV 99.1 H, MCH 32.9 H, MCHC 33.2, RDW 13.9, Plt Count 504 H, MPV 7.0 L, Neut % (Auto) 71.4, Lymph % (Auto) 22.3, Chambers % (Auto) 3.9, Eos % (Auto) 1.8, Baso % (Auto) 0.6, Neut # (Auto) 9.7 H, Lymph # (Auto) 3.0, Chambers # (Auto) 0.5, Eos # (Auto) 0.2, Baso # (Auto) 0.1 09/07/20 07:59: Sodium 138, Potassium 3.9, Chloride 101, Carbon Dioxide 30, Anion Gap 10.9, BUN 6 L, Creatinine 0.90, Estimated Creat Clear 135, Estimated GFR 97, Est GFR ( Amer) 118, Glucose 113 H, Calcium 9.5, Total Bilirubin 0.5, AST 32, ALT 36, Alkaline Phosphatase 88, Total Protein 7.8, Albumin 4.6, Globulin 3.2, Albumin/Globulin Ratio 1.4 09/07/20 07:59: SARS-CoV-2 IgG Ab (Rapid) Negative, SARS-CoV-2 IgM Ab (Rapid) Negative I & O for Last 24 hours: Intake & Output 09/05/20 09/06/20 09/07/20 09/08/20 11:59 11:59 11:59 11:59 Weight 180 lb - Constitutional no acute distress, average body habitus, cooperative - *Routine HEENT Exam Head: Present: normocephalic, atraumatic Eye: Present: EOMI, PERRL ENT: Present: mucous membranes moist - *Routine Neck Exam Present: supple, full ROM, trachea midline. Absent: lymphadenopathy - *Routine Respiratory Exam Present: CTA bilaterally. Absent: respiratory distress - *Routine Cardiovascular Exam Present: RRR, Normal S1, Normal S2 - *Routine Abdominal Exam Present: soft, normoactive bowel sounds. Absent: organomegaly - *Routine Rectal Exam Rectal:: deferred - *Routine Genitalia Exam Genitalia:: deferred - *Routine Extremities Exam Comments: Left hand/thumb: There is a 3 cm oblique laceration of the dorsum of the left thumb over the proximal phalanx extending in a proximal ulnar to distal radial action. There is a partial extensor pollicis tendon laceration. Distal vascularity is intact. - Routine Back/Spine/Pelvis Exam Back/Spine: Present: full ROM. Absent: CVA tenderness, paraspinal tenderness - *Routine Skin Exam Present: warm, normal turgor - *Routine Neurological Exam Present: alert, oriented X3, CN II-XII intact - Routine Psych
--- NOTE | 2020-09-07 18:09 | P.PN_ITS ---
[facility] Anesthesia Checklist - Patient Identification Patient Identification: Arm Band, Verbal (Name & ) - Structural Data Admitted From: Home Planned Operative Procedure/s: Left thumb wound exploration, I&D, tendon repair Consent for Planned Operative Procedure(s) Verified: Yes Verified Documents: Surgical Consent, History and Physical - NPO Status Verified Time NPO: 00:00 - Chart Verification Results Verified: CBC, BMP - Additional verifications Anesthesia Reactions: No Hx Blood Transfusions: No Blood Transfusion Reaction: No - Airway Assessment C-Spine Mobility Assessed: Yes TMJ Mobility Assessed: Yes Dentition: Good Dentition - Neurological Assessment Level of Consciousness: Awake, Alert, Appropriate, Follows Commands Hx Seizures: No Numbness or tingling in extremities: No - Anesthesia Plan Anesthesia Risk discussed: Yes Anesthesia Plan: Verified ASA Class: II Anesthesia Type: MAC [facility] History I have reviewed the patient's past medical history: Yes Medical History: Reports:: Gastrointestinal Bleed Denies:: Cancer, Diabetes Mellitus Type 1, Diabetes Mellitus Type 2, Internal Pacemaker, MRSA, Seizures *Have you ever received a pneumonia vaccine?: No *Have you received a flu vaccine this season?: No Other Medical History: Denies: Blood Transfusion Reaction Anesthesia experience/problems:: None Other Surgeries: Yes: Hernia Repair, Other. No: Pacemaker Amputation: No Fractures: No - *Social History Last grade of school completed: High school graduate Smoking Status: Current every day smoker Tobacco Type: cigarettes # Packs/Day (cigarettes): 2 Alcohol Intake: never Alcohol Intake Frequency:: a few times a week Substance Use Type: denies use *Occupational Status:: employed Housing: house Household Members: spouse *Travel in the last 8 weeks: None Family Hx:: No significant family history
--- NOTE | 2020-09-07 18:19 | HMH.OPNOTE ---
Date of procedure: 09/07/20 Pre-op Diagnosis:: 1. Laceration, left thumb 2. Extensor tendon injury, left thumb Post-op Diagnosis:: Same Procedure performed:: 1. Wound exploration and debridement, left thumb 2. Repair of extensor tendon, left thumb Surgeon:: Roldan Rivero MD Production Machine Computer Operator(s):: Kierra Cruz THREAT ANALYST:: Ace Dawkins Anesthesia: MAC, local Estimated blood loss (mL): 2 Clinical Note:: Patient is a 34-year-old dwoic-fnob-qswalwiu male who sustained a work-related lacerated injury this morning to his left thumb over the dorsal aspect of the proximal phalanx. The wound was irrigated and explored in the ER. The ER physician noted partial extensor tendon injury and referred for further orthopedic management. Clinically the patient has a 3 cm oblique laceration of the dorsum of the left thumb over the proximal phalanx extending in a proximal ulnar to distal radial action. There is a partial extensor pollicis tendon laceration. Distal vascularity is intact. Wound exploration, debridement and repair is indicated as needed. Please refer to my consult note for full details. Operative findings:: There is a 3 cm oblique laceration over the dorsal aspect of the proximal phalanx of the left thumb. After irrigation and exploring the wound, there is partial laceration of the extensor tendon involving about 50% of the tendon in the middle with intact tendon on both sides. The laceration is in the middle of the tendon with intact bands of the tendon on both radial and ulnar aspect. No joint or bone involvement is noted. No obvious contamination or foreign body is noted in the wound. Operative note:: Prior to surgery, patient was seen in the ER earlier today and again in the preoperative area just before surgery. I have discussed the diagnosis, natural history and management options including both nonsurgical and surgical. I have recommended wound exploration, debridement and repair of the extensor tendon as needed at the time of surgery. Patient wished to proceed with wound exploration and extensor tendon repair as needed. I have discussed the details of the procedure, risks and benefits and alternatives. The complications discussed include but are not limited to infection, injury to nerves and blood vessels, tendon injury, adhesions, stiffness, CRPS, incomplete functional recovery, anesthetic complications and likely need for further surgery in future. I have also discussed about postoperative splinting and likely need for hand therapy. All the questions were answered and he verbalized a good understanding. Patient understood the procedure, risks and benefits and wished to proceed with surgery, no guarantees are assurances were given or implied. The limb was appropriately marked and initialed by me and consent signed. The patient was brought to the operating room and placed supine on the operating table. The left upper extremity was placed over a side table. All the bony prominences were well-padded. The left upper extremity was prepped and draped in the usual sterile fashion. A preprocedure timeout was performed as per hospital policy. 10 mL of Polocaine 1.5% used for digital block. The limb was exsanguinated with the Esmarch bandage and tourniquet was inflated to 250 mmHg. Please see nursing records for the total tourniquet time. There is a 3 cm oblique laceration over the dorsal aspect of the proximal phalanx of the left thumb. After irrigation and exploring the wound, there is partial laceration of the extensor tendon involving about 50% of the tendon in the middle with intact tendon on both sides. The laceration is in the middle of the tendon with intact bands of the tendon on both radial and ulnar aspect. No joint or bone involvement is noted. No obvious contamination or foreign body is noted in the wound.The wound was noted to be clean without any obvious contamination or foreign body. The wound was then thoroughly irrigated with copious kendrick
== END 2020-09-07 18:37 | disposition home or self-care (01) ==
LOC: ER 08:17 → SDC 08:37
PROVIDERS: Emergency Provider Emergency Medicine; Visit Provider Orthopaedic Surgery
PROC: (CPT 64831; principal; 2020-09-07 17:00)
DX: S66.222A Laceration of extensor muscle, fascia and tendon of left thumb at wrist and hand level, initial encounter (principal); S61.012A Laceration without foreign body of left thumb without damage to nail, initial encounter; W25.XXXA Contact with sharp glass, initial encounter; Y92.69 Other specified industrial and construction area as the place of occurrence of the external cause; S64.497A Injury of digital nerve of left little finger, initial encounter
CPT/HCPCS: 64831; 26418; 69990; 73130; 80053; 85025; 86328; 90471; 90714; 96374; 96375; 99283; J0670

== ENCOUNTER 2020-09-29 09:27 | Outpatient (RCR) | payer OTHER, SELFPAY | END 2020-09-29 10:47 | disposition home or self-care (01) | LOC: OT 09:27 | PROVIDERS: Visit Provider Orthopaedic Surgery | DX: S56.429D Laceration of extensor muscle, fascia and tendon of unspecified finger at forearm level, subsequent encounter (principal) | CPT/HCPCS: 97763 ==